=== PATIENT | male | born 1955 | race Caucasian/White ===

== ENCOUNTER 2017-08-14 05:30 | Inpatient (IN) | payer MEDICAID ==
[~2017-08-14] VITALS: Ht 182.9 cm; Wt 99.8 kg
[~2017-08-14 05:30] MED LIST: LISI40TA4 PO; NOR10 PO
[2017-08-14] MEDS ORDERED: CEFAZOLIN 1 GM IVPB PREMIX 50 ML IV ONE (05:54)
[2017-08-14] MEDS ORDERED: ASPI-1063 PO (06:00)
[2017-08-14] MEDS ORDERED: CEFAZOLIN SOD 1 GM/ ISO 50 ML PREMIX IV ONE (07:00)
[2017-08-14] MEDS ORDERED: POLYMYXIN 500,000/BACIT.10,000 UNITS in NS IRR 1 L IR ONE (07:05)
[2017-08-14] MEDS ORDERED: LR 1,000 ML IV SCH (07:45)
[2017-08-14] MEDS ORDERED: HYDROmorphone 1 MG INJ. 1 MG/ML AMPUL IVP PRN ×3 (07:45→08:45)
[2017-08-14] MEDS ORDERED: HYDROmorphone 2 MG/ML VIAL IVP PRN ×3 (07:45→08:45)
[2017-08-14] MEDS ORDERED: MEPERIDINE HCL/PF 25 MG/ML DISP.SYRIN IVP PRN ×2 (07:45)
[2017-08-14] MEDS ORDERED: ONDANSETRON HCL 4 MG/2 ML VIAL IVP PRN ×2 (07:45→08:45)
[2017-08-14] MEDS ORDERED: MILK OF MAGNESIA 30 ML UDC PO PRN (08:45)
[2017-08-14] MEDS ORDERED: BISACODYL 10 MG/SUPPOSITORY RC PRN (08:45)
[2017-08-14] MEDS ORDERED: ZOLPIDEM TARTRATE 5 MG TABLET PO PRN (08:45)
[2017-08-14] MEDS ORDERED: DIPHENHYDRAMINE HCL 50 MG CAPSULE PO PRN (08:45)
[2017-08-14] MEDS ORDERED: METOCLOPRAMIDE HCL 10 MG/2 ML VIAL IVP PRN (08:45)
[2017-08-14] MEDS ORDERED: HYDROcodone/ACETAMIN 10-325 MG TAB PO PRN ×2 (08:45)
[2017-08-14] MEDS ORDERED: METHOCARBAMOL 500 MG TABLET PO PRN (08:45)
[2017-08-14] MEDS: LISINOPRIL 20 MG TABLET PO SCH (09:00)
[2017-08-14] MEDS: DOCUSATE SODIUM 100 MG CAPSULE PO SCH ×2 (09:00→21:31)
[2017-08-14] MEDS: amLODIPine BESYLATE 10 MG TABLET PO SCH (09:00)
[2017-08-14] MEDS: ASPIRIN 81 MG TABLET(ECOTRIN) PO SCH (09:00)
[2017-08-14] MEDS ORDERED: PROPOFOL 200MG/ 20ML VIAL (DIPRIVAN) IV ONE ×2 (09:44→09:51)
[2017-08-14] MEDS ORDERED: SEVOFLURANE 15 MIN GAS INH ONE ×2 (09:44→09:51)
[2017-08-14] MEDS ORDERED: SUCCINYLCHOLINE CHLORIDE 20 MG/ML(QUELICIN) IVP ONE ×2 (09:44→09:51)
[2017-08-14] MEDS ORDERED: NS IRRIG SOLN 1000 ML IR ONE ×2 (09:44→09:51)
[2017-08-14] MEDS ORDERED: CEFAZOLIN 2 GM IVPB PREMIX 50 ML IV ONE ×2 (09:44→09:51)
[2017-08-14] MEDS ORDERED: DEXAMETHASONE SOD PHOSPHATE 4 MG/ML VIAL IVP ONE ×2 (09:44→09:51)
[2017-08-14] MEDS ORDERED: fentaNYL CITRATE/PF 100 MCG/2 ML AMP IVP ONE ×2 (09:44→09:51)
[2017-08-14] MEDS ORDERED: ONDANSETRON HCL 4 MG/2 ML VIAL IVP ONE ×2 (09:44→09:51)
[2017-08-14] MEDS ORDERED: MIDAZOLAM HCL 5 MG/ML VIAL (VERSED) IV ONE ×2 (09:44→09:51)
[2017-08-14] MEDS ORDERED: NS 1000 ML BAG IV ONE ×2 (09:44→09:51)
[2017-08-14] MEDS ORDERED: LR 1,000 ML IV.SOLN IV ONE ×2 (09:44→09:51)
[2017-08-14] MEDS ORDERED: ePHEDrine sulfate 50 MG/ML VIAL IVP ONE (09:45)
[2017-08-14 10:17] VITALS: BP_SYST 125
[2017-08-14 12:29] VITALS: BP_SYST 118
[2017-08-14] MEDS: KCL 20 mEq in D5NS 1000 mL 1,000 ML IV SCH (12:50)
[2017-08-14] MEDS: CEFAZOLIN 2 GM IVPB PREMIX 50 ML IV SCH ×2 (14:27→21:31)
[2017-08-14 16:53] VITALS: BP_SYST 118
[2017-08-14 16:57] VITALS: BP_SYST 122
[2017-08-14 21:33] VITALS: BP_SYST 151
[2017-08-14 23:21] VITALS: BP_SYST 127
[2017-08-15] MEDS: KCL 20 mEq in D5NS 1000 mL 1,000 ML IV SCH (00:48)
[2017-08-15 03:48] VITALS: BP_SYST 132
[2017-08-15] MEDS: CEFAZOLIN 2 GM IVPB PREMIX 50 ML IV SCH (05:11)
[2017-08-15] MEDS ORDERED: HYDR-4100 PO ×2 (07:39→07:40)
[2017-08-15] MEDS ORDERED: METH500T PO (07:41)
[2017-08-15] MEDS ORDERED: DOCU250C PO (07:42)
[2017-08-15] MEDS ORDERED: DOCU-144 PO (07:42)
[2017-08-15 08:16] VITALS: BP_SYST 142
[2017-08-15] MEDS: DOCUSATE SODIUM 100 MG CAPSULE PO SCH (08:25)
[2017-08-15] MEDS: ASPIRIN 81 MG TABLET(ECOTRIN) PO SCH (08:25)
[2017-08-15] MEDS: amLODIPine BESYLATE 10 MG TABLET PO SCH (08:26)
[2017-08-15] MEDS: LISINOPRIL 20 MG TABLET PO SCH (08:26)
[2017-08-15 09:20] VITALS: BP_SYST 142
== END 2017-08-15 10:30 | disposition home or self-care (01) | DRG 310 ==
LOC: SMU 05:30
PROVIDERS: ADMIT Neurological Surgery; ATTEND Neurological Surgery
PROC: 4A11X4G Monitoring of Peripheral Nervous Electrical Activity, Intraoperative, External Approach (ICD-10-PCS; 2017-08-14)
PROC: 0SH004Z Insertion of Internal Fixation Device into Lumbar Vertebral Joint, Open Approach (ICD-10-PCS; 2017-08-14)
PROC: 01NB0ZZ Release Lumbar Nerve, Open Approach (ICD-10-PCS; principal; 2017-08-14 07:30)
DX: M48.06 Spinal stenosis, lumbar region (principal); F17.210 Nicotine dependence, cigarettes, uncomplicated; M19.90 Unspecified osteoarthritis, unspecified site; M43.16 Spondylolisthesis, lumbar region; F15.90 Other stimulant use, unspecified, uncomplicated; Z88.8 Allergy status to other drugs, medicaments and biological substances; M47.816 Spondylosis without myelopathy or radiculopathy, lumbar region; M46.06 Spinal enthesopathy, lumbar region
CPT/HCPCS: 76000; 82962; 87081; 94760; 97110-GP; 97116-GP; 97530-GP; A4649; J0330; J0690; J1100; J2250; J2405; J2704; J3010; J7030; J7120